=== PATIENT | male | born 1955 | race Caucasian/White ===

== ENCOUNTER 2024-08-02 09:48 | Outpatient (AMB) | payer MEDICARE, SELFPAY ==
--- NOTE | 2024-08-02 10:22 | A.OFFVIS_ITS ---
Vital Signs 08/02/24 10:27 Height 5 ft 9 in Weight 180 lb 4 oz BMI 26.6 BP 122/70 Blood Pressure Location Lt brachial Pulse 59 Pulse Source Pulse Oximeter Pulse Oximetry (%) 97 Oxygen Delivery Method Room Air Intake Visit Reasons: ENP-Snoring consideration for cari Intake Note: Patient presents for a new patient evaluation for snoring and sleep apnea. Remnant Sorter Required: No Accompanied by: Spouse Allergies lamotrigine Allergy (Verified 08/02/24 10:26) Rash HPI Comments Details: 69 year old male presents for CARI evaluation per Dr. Torres, [facility]. PMH : Surgical procedures bilaterally shoulders and l. knee replacement. He is accompanied by his who states he snores loudly, gasps for air, and stops breathing for a few seconds. He c/o R. hip and low back pain, chronic dull ache, MRI, severe degeneration of the Labrum, injections for spine at L5/S1. NEOS. Anthony Fragoso [place], has done extensive work for hip pain with PT. He goes to bed at 10pm, and wakes up at 7am, no bathroom breaks. He denies morning headaches, and grinding teeth. He denies RLS, cramps, pins, needles and muscle cramps or spasms. He gets anxious and has terrible sleep, especially when he has to travel the next morning. Memory and Mood is good, diet is okay. [facility] Medical History Insomnia Hypertension Hyperlipidemia GERD (gastroesophageal reflux disease) Chronic pain syndrome Chronic back pain Surgical History Hx of laminectomy H/O shoulder surgery Hx of cholecystectomy History of hydrocelectomy H/O colonoscopy History of tonsillectomy and adenoidectomy Family History Mother Cancer of lung Father COPD (chronic obstructive pulmonary disease) Cancer of lung Brother Arthritis Social History Alcohol intake: current Patient Tobacco Use Status: Never used Tobacco Review of Systems Const All systems reviewed & are unremarkable except as noted in HPI and below Physical Exam Vital Signs: Last Vital Signs Pulse 59 08/02/24 10:27 BP 122/70 08/02/24 10:27 Pulse Ox 97 08/02/24 10:27 Oxygen Delivery Method Room Air 08/02/24 10:27 BMI result Body Mass Index 26.6 Const General: cooperative, comfortable and no acute distress Nutritional Appearance: average body habitus Orientation/consciousness: patient oriented x3 HEENT Face and sinus: Yes normal facial exam and Yes face symmetric Teeth and gingiva: other (Mallmpti score is 3) Eyes Pupils: Equal, round and reactive pupils present Resp Effort & Inspection: normal respiratory effort and able to speak in complete sentences Neuro General: patient oriented x3 and moves all extremities Cranial nerves: Yes CN's II-XII intact bilaterally, Yes Facial sensation intact/muscles of mastication intact, Yes Equal, round and reactive pupils present, Yes Normal accommodation reflex present, Yes Bilaterally intact EOM present, Yes Nystagmus not present, Yes Normal facial strength present, Yes Ability to bilaterally rotate head present and Yes Ability to bilaterally elevate shoulders present Cognition (Neuro): normal cognition Gait exam (Neuro): Normal gait present Motor exam (neuro): 5/5 motor strength present throughout and Normal motor muscle tone present throughout Deep tendon reflexes (DTR's): Right triceps reflex intensity grade: 2+, Left triceps reflex intensity grade: 2+, Rt Biceps (C5, C6): 2+, Left biceps reflex intensity grade: 2+, Right brachioradialis reflex intensity grade: 2+, Left brachioradialis reflex intensity grade: 2+, Right patellar reflex intensity grade: 2+, Left patellar reflex intensity grade: 2+, Right ankle reflex intensity grade: 2+ and Left ankle reflex intensity grade: 2+ Psych Appearance: grossly normal Mental Status: mental status grossly normal Speech and movement: Normal speech and movement present Affect: normal affect Attitude: cooperative Thought process: Normal thought process present Thought content: Normal thought content present Insight: Good insight present (Psych) Judgement: Good judgement present (Psych) Results Reviewed Results Reviewed: Notes from [facility] : Lisinopril 5mg PO daily and Naproxen 220mg PO BID , Mirtazapine 15mg, Gabapentin 300mg TID Allergies to Lamotrigine Rash Assessment & Plan Assessment & Plan (1) Loud snoring: Code(s): R06.83 - Snoring Category: Medical (2) Fatigue due to sleep pattern disturbance: Code(s): R53.83 - Other fatigue; G47.9 - Sleep disorder, unspecified Category: Medical (3) Chronic low back pain: Code(s): M54.50 - Low back pain, unspecified; G89.29 - Other chronic pain Category: Medical Qualifiers: Back pain laterality: right Sciatica laterality: sciatica laterality unspecified Sciatica presence: with sciatica Qualified Code(s): M54.40 - Lumbago with sciatica, unspecified side; G89.29 - Other chronic pain Plan Sleep Evaluation: Snoring and Daytime fatigue: Will send him for a HST Labs will f/u with B12/ Folate, MMA, Homocysteine, Vit D and TSH to r/o deficiencies F/U in 3 months Mouthguard? Bruxism? -Chronic Arthritic Pain May take Turmeric 500mg PO BID with black pepper for improved absorption rates. Collagen?[facility]? Supplement? Chondritin? Glucosamine? Bone Broth Coding Level of Care Code New Pt Level 4 (77786) Diagnoses Loud snoring R06.83 Fatigue due to sleep pattern disturbance R53.83; G47.9 Chronic right-sided low back pain with sciatica, sciatica laterality unspecified M54.40; G89.29 Back pain laterality: right Sciatica laterality: sciatica laterality unspecified Sciatica presence: with sciatica Time Spent (min) 30 Comment Evaluation Sleep Questionnaire Difficulty falling asleep: Yes Difficulty staying asleep?: Yes Number of arousals: 0 Snoring: Yes Witnessed apneas: Yes Gasping arousals: Yes Nocturia: No GERD: No Vivid dreams: No Acting out dreams: No Abnormal behavior in sleep: No Abnormal movements in sleep: No Morning headaches: No Excessive daytime sleepiness: No Daytime naps: No Restless legs: No Hallucinations: No Sleep paralysis: No Drop attacks: No Sleep Study: No CPAP: No
[2024-08-02 10:27] VITALS: BP 122/70; PULSE 59; O2SAT 97; BMI 26.6
--- OUTSIDE RECORDS SUMMARY | 2024-08-02 11:11 | XMS_ITS | Continuity of Care Document ---
Author Organization [facility] Address [address] [place] [address]- Care Team Providers Care Property Field Adjuster Name Role Phone Melissa COLLIER, Andrew Irby Primary Care Physician Encounter [facility] Date(s): 06/12/24 - 07/12/24 [facility] [address] [place] [address]- Encounter Type: Triage Allergies, Adverse Reactions, Alerts Substance Criticality Severity Reaction Reaction Severity Status lamoTRIgine 1 rash Active 1rash, blistered lips Immunizations Given and Recorded Vaccine Date Status Refusal Reason influenza virus vaccine, inactivated 03/09/24 Quirino rded influenza virus vaccine, inactivated 04/10/23 Quirino rded influenza virus vaccine, inactivated 03/27/21 Quirino rded influenza virus vaccine, inactivated 03/24/20 Quirino rded influenza virus vaccine, inactivated 04/06/19 Quirino rded influenza virus vaccine, inactivated 04/12/18 Quirino rded influenza virus vaccine, inactivated 1 03/31/17 Re corded influenza virus vaccine, inactivated 03/22/16 Quirino rded influenza virus vaccine, inactivated 04/16/15 Quirino rded influenza virus vaccine, inactivated 2 04/08/14 Re corded influenza virus vaccine, inactivated 3 05/04/13 Re corded influenza virus vaccine, inactivated 4 05/11/10 Gi savanah influenza virus vaccine, inactivated 5 06/10/09 Gi savanah SARS-CoV-2(COVID-19)mRNA-LNP vac([id number]) 03/09/24 Recorded RSV vaccine preF3, recombinant 06/07/23 Recorded [id number]-DgZ-[id number]-[id number] bivalent booster vax 04/26/23 Recorded TRLH-YfU-1vKTW-1273 bivalent booster vax 01/08/23 Recorded QYTW-KhU-7dRYL-1273 bivalent booster vax 05/28/22 Recorded Influenza Virus Vaccine (oldterm) 04/20/22 Recorde d SARS-CoV-2 mRNA ([id number]-bzgs-frsbg) vax 10/20/21 Recorded SARS-CoV-2 (COVID-19) mRNA BNT-162b2 vac 04/10/21 Recorded SARS-CoV-2 (COVID-19) mRNA BNT-162b2 vac 09/24/20 Recorded SARS-CoV-2 (COVID-19) mRNA BNT-162b2 vac 09/02/20 Recorded pneumococcal 23-valent vaccine 03/27/21 Recorded pneumococcal 13-valent vaccine 03/24/20 Recorded pneumococcal 13-valent vaccine 6 07/16/19 Given tetanus/diphtheria/pertussis, acel(Tdap) 7 07/16/19 Given Zostavax (oldterm) 09/29/16 Recorded Zoster Vaccine Live 8 06/24/14 Given influ virus vac, H1N1, inactive(oldterm) 9 07/12/09 Given tetanus-diphtheria toxoids (Td) 05/14/08 Given Influenza Inactive (IM) (oldterm) 10 05/05/07 Give n 1Result Comment: [04/01/2017] Afluria [id number] Syringe [facility] [address] [place] [address] 2Result Comment: [04/10/2014] [facility] afluria 3Result Comment: [05/08/2013] [facility] 4Admin Note: vis given 02-18-09 5Admin Note: at work 6Result Comment: [facility] [id number] 7Result Comment: [facility] [phone] 8Result Comment: [06/24/2014] DILUENT LOT # [id number] EXP 12/02/16 9[facility] 10Admin Note: VIM-SANOFI Problem List Condition Confirmation Course Effective Dates Status H ealth Status Informant Chronic back pain Confirmed Active Chronic pain syndrome (Back, Failed Back, Gluteal, SI jt, L facet jt) Confirmed Active Gastro-esophageal reflux Confirmed Active Hyperlipidemia Confirmed Active Hypertension Confirmed Active Insomnia Confirmed 09/14/11 Active Social History Social History Type Response Smoking Status Never smoker entered on: 06/13/14 Sex Sex Representation Male (finding) Patient Care team information Care Team Personnel Name: Andrew Torres MD Position: S Physician - Primary Care Member Role: PCP Address: [address] [place] [address] Telecom: Care Team Related Persons Name: KEATON GERARD Insurance Providers Guarantor name: SAM GERARD [facility] Plan Information #: 1 Payer: NA Member Number: NA Policy Number: NA Group Number: NA
--- OUTSIDE RECORDS SUMMARY | 2024-08-02 11:11 | XMS_ITS | Continuity of Care Document ---
Author Organization [facility] Address [address] [place] [address]- Care Team Providers Care Export Manager Name Role Phone Melissa COLLIER, Andrew Irby Primary Care Physician Encounter [facility] Date(s): 06/13/24 - 07/13/24 [facility] [address] [place] [address]- Encounter Type: Triage Allergies, Adverse Reactions, Alerts [...] vaccine, inactivated 5 06/10/09 Gi savanah SARS-CoV-2(COVID-19)mRNA-LNP vac([id number]) 03/09/24 Recorded RSV vaccine preF3, recombinant 06/07/23 Recorded GVON-TvI-7jAKG-1273 bivalent booster vax 04/26/23 Recorded ITFI-YjC-7uSXZ-1273 bivalent booster vax 01/08/23 Recorded KCVS-GbZ-7eFRD-1273 bivalent booster vax 05/28/22 Recorded Influenza Virus Vaccine (oldterm) 04/20/22 Recorde d SARS-CoV-2 mRNA (wmhzsus-lgtx-zgyqq) vax 10/20/21 Recorded SARS-CoV-2 (COVID-19) mRNA BNT-162b2 [...] 05/05/07 Give n 1Result Comment: [04/01/2017] Afluria [id number] Syringe [facility] [address] [place] [address] 2Result Comment: [04/10/2014] [facility] 3Result Comment: [05/08/2013] [facility] 4Admin Note: vis given 02-18-09 5Admin Note: at work 6Result Comment: [facility] [id number] 7Result Comment: [facility] [phone] 8Result Comment: [06/24/2014] DILUENT LOT # [id number] EXP 12/02/16 9Admin Note: [facility] 10Admin Note: [...] - Primary Care Member Role: PCP Address: [address] [place] [address] Telecom: Care Team Related Persons Name: KEATON GERARD Insurance Providers Guarantor name: SAM GERARD [facility] Plan Information #: 1 Payer: NA Member Number: NA Policy Number: NA Group Number: NA
--- OUTSIDE RECORDS SUMMARY | 2024-08-02 11:11 | XMS_ITS | Continuity of Care Document ---
Author Organization [facility] ter Address [address] [place] [address]- Care Team Providers Care Owner Name Role Phone Andrew Torres MD Primary Care Physician Encounter 07/23/24 - 07/24/[address] [address] Attending Physician: Not on Staff, Attending MD Referring Physician: Not on Staff, Referring MD Encounter Type: SMRI Allergies, Adverse Reactions, Alerts Substance Criticality Severity [...] vaccine, inactivated 5 06/10/09 Gi savanah SARS-CoV-2(COVID-19)mRNA-LNP vac([id number]) 03/09/24 Recorded RSV vaccine preF3, recombinant 11/28/23 Recorded GPWF-MaC-5pHGZ-1273 bivalent booster vax 04/26/23 Recorded XFZL-NsV-7mZDX-1273 bivalent booster vax 01/08/23 Recorded GWFE-FhL-4fBOD-1273 bivalent booster vax 05/28/22 Recorded Influenza Virus Vaccine (oldterm) 04/20/22 Recorde d SARS-CoV-2 mRNA (jgjhvts-asio-kbkkz) vax 10/20/21 Recorded SARS-CoV-2 (COVID-19) mRNA BNT-162b2 [...] 05/05/07 Give n 1Result Comment: [04/01/2017] Afluria [phone] [facility]ringe [facility] [address] [place] [address] 2Result Comment: [04/10/2014] [facility]fluria 3Result Comment: [05/08/2013] [facility] 4Admin Note: vis given 02-18-09 5Admin Note: at work 6Result Comment: [facility] [id number] 7Result Comment: [facility] [phone] 8Result Comment: [06/24/2014] DILUENT LOT # [id number] EXP 12/02/16 9Admin Note: [facility] 10Admin Note: VIM-SANOFI Problem List Condition Confirmation Course Effective Dates Status H ealth Status Informant Chronic back pain Confirmed Active Chronic pain syndrome (Back, Failed Back, Gluteal, SI jt, L facet jt) Confirmed Active Gastro-esophageal reflux Confirmed Active Hyperlipidemia Confirmed Active Hypertension Confirmed Active Insomnia Confirmed 09/14/11 Active Results Radiology Reports * Exam Date Time Procedure Performing Provider Status 07/23/24 5:17 PM MRI Lumbar Spine W/O Contrast Auth (Verified) Notes: (MRI Lumbar Spine W/O Contrast) Reason For Exam: Radiculopathy, Lumbar Region;Radiculopathy, LumbarRegion RESULT: MRI Lumbar Spine W/O Contrast [facility] VISIT NUMBER :[id number] Patient Name: Sam Gerard Date of : 1955 Date of Exam: 07-23-2024 Referring Physician: Marcelina [facility] [address] [place] [id number] Exam: MR Lumbar Spine (C-) CPT 28417 Room Description: [facility] 3.0T MR Lumbar Spine (C-) CPT 01901 INDICATION: Radiculopathy, Lumbar Region Radiculopathy, Lumbar Region TECHNIQUE: MRI of the lumbar spine was performed without intravenous contrast utilizing sagittal T1, sagittal T2, sagittal STIR, axial T1, and axial T2-weighted sequences. COMPARISON: Lumbar spine MRI 08/07/2021. FINDINGS: NUMBERING: The study assumes 5 jhu-tdd-jrgctkf lumbar type vertebral bodies. ALIGNMENT, VERTEBRAE, MARROW, AND DISCS: Alignment is normal. Vertebral body heights are preserved. There is a hemangioma at L2. There is multilevel disc desiccation and loss of intervertebral disc height which is again most pronounced at L5-S1 where there are minimal Modic type I signal changes. CONUS: The conus is normal in signal and contour, with normal level of termination at L2. PARASPINAL TISSUES: The paraspinal soft tissues are unremarkable. DETAILED FINDINGS BY LEVEL: L1-L2: No significant canal stenosis or neural foraminal narrowing. L2-L3: Facet arthropathy. Minimal disc bulge. No significant canal stenosis or neural foraminal narrowing. L3-L4: Facet arthropathy. No significant canal stenosis or neural foraminal narrowing. L4-L5: Minimal broad disc osteophyte complex and facet arthropathy. There is narrowing of the subarticular recesses with crowding of the traversing L5 nerve roots which is similar to the previous exam. Otherwise, no significant canal stenosis. There is minimal bilateral neural foraminal narrowing which is similar to the previous exam. No significant canal stenosis or neural foraminal narrowing. L5-S1: There is a right laminotomy defect. Broad disc osteophyte complex and facet arthropathy. There is mild narrowing of the left-sided spinal canal and subarticular zones with crowding of the traversing left S1 nerve roots. Heterogeneous material probably reflecting granulation tissue/scar tissue again partially surrounds the right S1 nerve root, this is better assessed on previous contrast-enhanced exam. There is mild left and moderate right neural foraminal narrowing, increased. IMPRESSION: Increased moderate right and mild left neural foraminal narrowing at L5-S1. Findings are otherwise similar to the previous exam. Electronically Signed By: Michaelle Finnegan MD Dictated By: Not on Staff , SHANNON COLLIER Dictated Date/Time: 07/24/24 3:35 pm Reviewed By: Not on Staff , SHANNON COLLIER Signed By: Not on Staff , SHANNON COLLIER Signed Date/Time: 07/24/24 3:35 pm Transcribed By: CAREN Transcribed Date/Time: 07/24/24 3:35 pm Social History Social History Type Response Smoking Status Never smoker entered on: 06/13/14 Sex Sex Representation Male (finding) Patient Care team information Care Team Personnel Name: Melissa COLLIER, Andrew Irby Position: S Physician - Primary Care Member Role: PCP Address: [address] [place] [address]- Telecom: Care Team Related Persons Name: KEATON GERARD Insurance Providers Guarantor name: SAM GERARD Health Plan Information #: 1 Payer: ERICK Member Number: NA Policy Number: NA Group Number: NA
== END 2024-08-02 11:01 | disposition home or self-care (01) ==
PROVIDERS: PCP Family Medicine; Visit Provider Physician Assistant Medical
DX: R06.83 Snoring (principal); R53.83 Other fatigue; G47.9 Sleep disorder, unspecified; M54.40 Lumbago with sciatica, unspecified side; G89.29 Other chronic pain
CPT/HCPCS: 99204

== ENCOUNTER → 2024-08-02 09:48 | Outpatient (BNVA) | payer MEDICARE, SELFPAY | PROVIDERS: PCP Family Medicine; Visit Provider Physician Assistant Medical | DX: R06.83 Snoring (principal); R53.83 Other fatigue; G47.9 Sleep disorder, unspecified; G89.29 Other chronic pain; M54.40 Lumbago with sciatica, unspecified side | CPT/HCPCS: 99202 ==

== ENCOUNTER → 2024-10-03 12:50 | Outpatient (REF) | payer MEDICARE, SELFPAY | LOC: HO.SL 12:50 | PROVIDERS: PCP Family Medicine; Visit Provider Physician Assistant Medical | DX: R06.83 Snoring (principal); R53.83 Other fatigue; G47.9 Sleep disorder, unspecified | CPT/HCPCS: 95806 ==

== ENCOUNTER → 2024-10-03 13:01 | Outpatient (BNV) | payer MEDICARE, SELFPAY | PROVIDERS: PCP Family Medicine; Visit Provider Psychiatry & Neurology Neurology | DX: R06.83 Snoring (principal); G47.10 Hypersomnia, unspecified | CPT/HCPCS: 95806 ==

== ENCOUNTER 2024-11-01 10:57 | Outpatient (AMB) | payer MEDICARE, SELFPAY ==
[2024-11-01 11:03] VITALS: BP 120/78; PULSE 50; O2SAT 99; BMI 28.1
--- NOTE | 2024-11-01 11:03 | MHC.OFFVIS ---
Vital Signs 11/01/24 11:03 Height 5 ft 9 in Weight 190 lb 6 oz BMI 28.1 BP 120/78 Blood Pressure Location Rt brachial Position Sitting Pulse 50 Pulse Source Pulse Oximeter Pulse Oximetry (%) 99 Oxygen Delivery Method Room Air Intake Visit Reasons: 3 mnts f/u Intake Note: Patient presents follow up sleep. Allergies lamotrigine Allergy (Verified 11/01/24 11:06) Rash HPI Comments Details: 69 year old male presents for SACHIN evaluation per Dr. Torres, [facility]. PMH : Surgical procedures bilaterally shoulders and L. TKR. 2019 Back surgery, Laminectomy with Dr. Hickey. He is a retired guidance counselor, and accompanied by his who states he snores loudly, gasps for air, and stops breathing for a few seconds, he often will leave their room and go sleep in another bedroom in the home. He c/o chronic R. hip and low back pain, dull ache, MRI shows severe degeneration of the Labrum and he is seen by PT for injections into spine at L5/S1 by Anthony Fragoso. [facility] has done extensive work with him for Bursitis also. He goes to bed at 9pm, and wakes up at 5am, no bathroom breaks. He denies morning headaches, and grinding teeth. He denies RLS, cramps, pins, needles and muscle cramps or spasms. He gets anxious and has terrible sleep, especially when he has to travel the next morning, he anticipates the transition all night long. He has back and r. buttock, sciatica L5/S1 an uncomfortable sensation with numbness of r. foot due to pain that radiates, he sees [facility] for cortisone shots, and has seen [facility] in [facility]. His memory continues to be at baseline stable, he just received his new hearing aids and learning to use them. He takes Mirtazapine 1/2 a pill only when he needs to sleep, he gets very anxious. His mood and diet are good, he walks daily with his , consumes a fairly well balanced diet. [facility] Medical History Insomnia Hypertension Hyperlipidemia GERD (gastroesophageal reflux disease) Chronic pain syndrome Chronic back pain Surgical History Hx of laminectomy H/O shoulder surgery Hx of cholecystectomy History of hydrocelectomy H/O colonoscopy History of tonsillectomy and adenoidectomy Family History Mother Cancer of lung Father COPD (chronic obstructive pulmonary disease) Cancer of lung Brother Arthritis Social History Alcohol intake: current Patient Tobacco Use Status: Never used Tobacco Physical Exam Vital Signs: Last Vital Signs Pulse 50 11/01/24 11:03 BP 120/78 11/01/24 11:03 Pulse Ox 99 11/01/24 11:03 Oxygen Delivery Method Room Air 11/01/24 11:03 BMI result Body Mass Index 28.1 Const General: cooperative, comfortable and no acute distress Nutritional Appearance: average body habitus Orientation/consciousness: patient oriented x3 HEENT Face and sinus: Yes normal facial exam and Yes face symmetric Teeth and gingiva: other (Mallmpti score is 3) Eyes Pupils: Equal, round and reactive pupils present Resp Effort & Inspection: normal respiratory effort and able to speak in complete sentences Neuro General: patient oriented x3 and moves all extremities Cranial nerves: Yes CN's II-XII intact bilaterally, Yes Facial sensation intact/muscles of mastication intact, Yes Equal, round and reactive pupils present, Yes Normal accommodation reflex present, Yes Bilaterally intact EOM present, Yes Nystagmus not present, Yes Normal facial strength present, Yes Ability to bilaterally rotate head present and Yes Ability to bilaterally elevate shoulders present Cognition (Neuro): normal cognition Gait exam (Neuro): Normal gait present Motor exam (neuro): 5/5 motor strength present throughout and Normal motor muscle tone present throughout Deep tendon reflexes (DTR's): Right triceps reflex intensity grade: 2+, Left triceps reflex intensity grade: 2+, Rt Biceps (C5, C6): 2+, Left biceps reflex intensity grade: 2+, Right brachioradialis reflex intensity grade: 2+, Left brachioradialis reflex intensity grade: 2+, Right patellar reflex intensity grade: 2+, Left patellar reflex intensity grade: 2+, Right ankle reflex intensity grade: 2+ and Left ankle reflex intensity grade: 2+ Psych Appearance: grossly normal Mental Status: mental status grossly normal Speech and movement: Normal speech and movement present Affect: normal affect Attitude: cooperative Thought process: Normal thought process present Thought content: Normal thought content present Insight: Good insight present (Psych) Judgement: Good judgement present (Psych) Results Reviewed Results Reviewed: HST October 2024 c/w AHI 4.4 and oxygen dylan to 80%. Assessment & Plan Assessment & Plan (1) Loud snoring: Code(s): R06.83 - Snoring Category: Medical (2) Fatigue due to sleep pattern disturbance: Code(s): R53.83 - Other fatigue; G47.9 - Sleep disorder, unspecified Category: Medical (3) Chronic low back pain: Code(s): M54.50 - Low back pain, unspecified; G89.29 - Other chronic pain Category: Medical Qualifiers: Back pain laterality: right Sciatica laterality: sciatica laterality unspecified Sciatica presence: with sciatica Qualified Code(s): M54.40 - Lumbago with sciatica, unspecified side; G89.29 - Other chronic pain Plan Fatigue due to sleep disturbances and snoring. Chronic LBP - declined PT today. Labs reviewed from 02/2024 [facility] HDL was low, will f/u with labs. Mouth gaurd suggested for snoring, nose strips and taping the mouth may be an option. Orders: Orders Complete Blood Count no Diff Today G47.9 - Sleep disorder, unspecified, R53.83 - Other fatigue Hemoglobin A1c Today G47.9 - Sleep disorder, unspecified, R53.83 - Other fatigue Vitamin D 25-OH Total Today G47.9 - Sleep disorder, unspecified, R53.83 - Other fatigue TSH reflex Free T4 Today G47.9 - Sleep disorder, unspecified, R53.83 - Other fatigue Homocysteine Today G47.9 - Sleep disorder, unspecified, R53.83 - Other fatigue Comprehensive Met. Panel Today G47.9 - Sleep disorder, unspecified, R53.83 - Other fatigue Ferritin Today G47.9 - Sleep disorder, unspecified, R53.83 - Other fatigue Methylmalonic Acid Today G47.9 - Sleep disorder, unspecified, R53.83 - Other fatigue Vitamin B12 and Folate Today G47.9 - Sleep disorder, unspecified, R53.83 - Other fatigue Lipid Panel with Reflex Today G47.9 - Sleep disorder, unspecified, R53.83 - Other fatigue Referrals Dentistry Referral R06.83 - Snoring Patient Instructions: Sleep Hygiene provided: set a scheduled bedtime and wake time to help regulate the circadian rhythm and balance the release of pituitary hormones. Sleep in a dark room, temperatures below 68 degrees, and no devices n bed. Limit caffeinated products 6 hours prior to bed, and limit fluids 2-4 hours prior to bed. Gentle night yoga, diffusing essential oils, and playing soft music can be relaxing. HST was 4.4 and oxygen Dylan to 80%, we spoke about mouth gaurd- somno gaurd/ oral appliances and positional therapy as needed, he is a side sleeper. Will f/u with us if he feels sleep is not improving. F/U with Labs for fatigue r/o deficiencies or anemia. Coding Level of Care Code Tele Est Pt Level 4 (17907) Diagnoses Loud snoring R06.83 Fatigue due to sleep pattern disturbance R53.83; G47.9 Chronic right-sided low back pain with sciatica, sciatica laterality unspecified M54.40; G89.29 Back pain laterality: right Sciatica laterality: sciatica laterality unspecified Sciatica presence: with sciatica Time Spent (min) 30
== END 2024-11-01 11:58 | disposition home or self-care (01) ==
LOC: HO.HSMS 10:57
PROVIDERS: PCP Family Medicine; Visit Provider Physician Assistant Medical
DX: R06.83 Snoring (principal); R53.83 Other fatigue; G47.9 Sleep disorder, unspecified; M54.40 Lumbago with sciatica, unspecified side; G89.29 Other chronic pain
CPT/HCPCS: 99214

== ENCOUNTER → 2024-11-01 10:57 | Outpatient (BNVA) | payer MEDICARE, SELFPAY | PROVIDERS: PCP Family Medicine; Visit Provider Physician Assistant Medical | DX: R06.83 Snoring (principal); R53.83 Other fatigue; M54.50 Low back pain, unspecified; G89.29 Other chronic pain | CPT/HCPCS: 99212 ==